=== PATIENT | female | born 1975 | race Two or more races ===

== ENCOUNTER 2018-08-07 09:39 | Day surgery (SDC) | payer MEDICAID ==
[2018-08-06 13:13] LABS: Basophils # (auto) 0 uL; Basophils % (auto) 0.5 % (0.0-2.0); Eosinophils # (auto) 0.2 uL; Eosinophils % (auto) 3.9 % (0.0-7.0); Hemoglobin 13.9 g/dL (12.2-16.2); Lymphocytes # (auto) 2.3 uL; Lymphocytes % (auto) 40.7 % (10.0-50.0); Mean Corpuscular Hemoglobin 29.6 pg (28.0-32.0); Mean Corpuscular Hgb Conc. 33.1 g/dL (32.0-36.0); Mean Corpuscular Volume 89.4 fL (80.0-100.0); Monocytes # (auto) 0.4 uL; Monocytes % (auto) 6.8 % (0.0-12.0); Neutrophils # (auto) 2.7 uL; Neutrophils % (auto) 48.1 % (37.0-80.0); Nucleated Red Blood Cells % 0.1 %; Platelet Count (auto) 203 10^3/uL (140-450); Red Cell Distribution Width 13.2 % (11.8-14.3); White Blood Cell 5.6 10^3/uL (4.4-10.8)
[2018-08-06 13:28] LABS: INR 0.93 (0.9-1.15); Partial Thromboplastin Time 29.2 sec (23.78-33.04)
[2018-08-06 13:31] LABS: Albumin 3.7 g/dL (3.4-5.0); BUN/Creatinine Ratio 33.3; Bilirubin, Total 1.2 mg/dL (0.2-1.0); Calcium 8.8 mg/dL (8.5-10.1); Potassium 3.9 mmol/L (3.5-5.1); Total Protein 7.7 g/dL (6.4-8.2)
[~2018-08-07] VITALS: Ht 188 cm; Wt 106.1 kg
[~2018-08-07 09:39] MED LIST: ASPI81TA27 PO; ATOR10TA52 PO; DULA0.5I SC; INSLANTI SC; INSU100I4 SC; LINA145C OR; LISI10TA6 PO; MELO-61 PO; METF-372 PO; MONT10TA23 PO; OMEP20TA PO; POTA20TA53 PO
[2018-08-07] MEDS ORDERED: ceFAZolin 1GM/50ML 50 ML IV ONE (10:56)
[2018-08-07] MEDS ORDERED: ceFAZolin 1GM VL ONE (13:05)
[2018-08-07] MEDS ORDERED: NEOMYCIN-BACITRACIN-POLYM 15GM TOP OINT TOP ONE (13:05)
[2018-08-07] MEDS ORDERED: BUPIVACAINE 0.75% INJ 10ML MPV SDV IJ ONE (13:06)
[2018-08-07] MEDS ORDERED: methylPREDNISolone ACETATE 80 MG/ML VL ONE (13:06)
[2018-08-07] MEDS ORDERED: MIDAZOLAM HCL 1MG/1ML-2 ML VIAL ONE (13:34)
[2018-08-07] MEDS ORDERED: fentaNYL CITRATE 100 MCG/2 ML VL ONE ×2 (13:34→13:50)
[2018-08-07] MEDS ORDERED: PROPOFOL 10 MG/ML 20 ML IV ONE (13:34)
[2018-08-07] MEDS ORDERED: SODIUM CHLORIDE LOCK 10 ML ONE (13:34)
[2018-08-07] MEDS ORDERED: HYDROmorphone HCL 2 MG/ML VL IV PRN (14:30)
[2018-08-07] MEDS ORDERED: ACCU-CHEK COMFORT CURVE STRIP VI ONE (14:30)
[2018-08-07] MEDS ORDERED: METOCLOPRAMIDE HCL 5MG/ml INJ 2ml VIAL IV ONE (14:30)
[2018-08-07] MEDS ORDERED: KETOROLAC TROMETH 30 MG/ML 1ML VIAL IV ONE (14:30)
[2018-08-07 14:43] VITALS: BP 124/79
== END 2018-08-07 14:45 | disposition home or self-care (01) ==
LOC: SUR 09:39
PROVIDERS: ATTEND Podiatrist Foot & Ankle Surgery
DX: D23.71 Other benign neoplasm of skin of right lower limb, including hip (principal); M89.8X7 Other specified disorders of bone, ankle and foot; E66.9 Obesity, unspecified; E11.9 Type 2 diabetes mellitus without complications; F17.210 Nicotine dependence, cigarettes, uncomplicated; I10 Essential (primary) hypertension; E78.00 Pure hypercholesterolemia, unspecified; J45.909 Unspecified asthma, uncomplicated; Z90.710 Acquired absence of both cervix and uterus; Z79.82 Long term (current) use of aspirin; Z79.899 Other long term (current) drug therapy; Z86.73 Personal history of transient ischemic attack (TIA), and cerebral infarction without residual deficits
CPT/HCPCS: 36415; 80053; 82962; 85025; 85610; 85730; J0690; J2250; J2704; J3490